=== PATIENT | male | born 1955 | race Caucasian/White ===

== ENCOUNTER 2023-11-10 13:00 | Outpatient (CLI) | payer MEDICARE, BC | END 2023-11-10 23:59 | disposition home or self-care (01) | LOC: RAD 13:00 | PROVIDERS: ATTEND Otolaryngology | DX: C01 Malignant neoplasm of base of tongue (principal); R13.14 Dysphagia, pharyngoesophageal phase; R49.0 Dysphonia | CPT/HCPCS: 74230 ==